=== PATIENT | female | born 2005 | race Caucasian/White ===

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

== ENCOUNTER 2024-02-22 09:04 | Outpatient (AMB) | payer BC, SELFPAY ==
--- NOTE | 2024-02-22 09:11 | MHC.PC.OV ---
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 Intake Note: New patient visit. Frequent UTI. Clinical Trainer Required: No Is last menstrual period known: No (Takes control that doesn't allow her to get her menstrual cycle.) Patient : No Allergies No Known Allergies Allergy (Verified 02/22/24 09:14) Medication List - Last Reconciled 02/22/24 by Shabana Piper PA-C hydroxyzine HCl 50 mg PO BEDTIME lamotrigine 100 mg PO DAILY norethindrone ac-eth estradiol 1-20 mg-mcg () 1 tab PO DAILY Tobacco use date assessed: 02/22/24 Dental Screening Dental Screen Date: 02/22/24 Did you have a dental visit in the last 12 months?: Yes Did you have a dental problem in the last 6 months where you did not have access to dental care?: No Was dental information given to patient?: Patient has dentist HPI 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 HPI Details Pt is a 19 y/o female who presents today for a cpe. she is transferring from [facility]. She has a significant past medical history of generalized anxiety disorder, panic disorder and new diagnosis of OCD. She does not have any acute concerns today. Uro: She is having frequent utis and wants to see urology. She is gone to the hospital 4 times this year for UTIs. States that she usually urinates after intercourse. She has already taking cranberry pills. She states 1 time this year her UTI got so severe she ended up with pyelonephritis. She is currently asymptomatic but often has dysuria and does not always get seen for this. She tries to sometimes treat it at home. Psych: Currently doing a lot better with Psychiatry. She started lamotrigine 100 mg twice a day and hydroxyzine at night. Last semester her anxiety got so severe that she was unable to drive herself anywhere. She still struggles with driving but it is getting a little better as she has a plan with her psychiatrist and therapist. She feels a bit more in control of her anxiety and emotions. No SI/HI. She has been hospitalized before for mental health related issues. GI: Her brother has a history of Crohn's disease and she denies any change in stool, diarrhea, mucus in the stool or blood. She does have chronic ongoing nausea and was following with GI but would like a 2nd opinion. Denies using any marijuana. States that she does sometimes get heartburn but does not feel like this is related. She states that sometimes when she vomits it is actually only partially digested food and she wonders if she has some slow digestive tract. She denies any weight loss related to this. 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 Medical History (Updated 02/22/24 @ 09:43 by Shabana Piper PA-C) GERD (gastroesophageal reflux disease) Chronic nausea Frequent UTI Asthma, mild intermittent, well-controlled Generalized anxiety disorder ADHD OCD (obsessive compulsive disorder) Family History (Updated 02/22/24 @ 09:24 by Samira Quintero CMA) Father Alcoholism Mother Asthma Social History Housing: House Patient Tobacco Use Status: Never used Tobacco e-Cigarette/Vaping Use: Former Use Second Hand Smoke Exposure: No service: No Current occupational status: student Cognitive needs: No Hearing needs: No Vision needs: No Questionnaire PHQ-9 Over the last 2 weeks, how often have you been bothered by any of the following problems? 1. Little interest or pleasure in doing things: several days 2. Feeling down, depressed, or hopeless: several days 3. Trouble falling or staying asleep, or sleeping too much: more than half the days 4. Feeling tired or having little energy: more than half the days 5. Poor appetite or overeating: more than half the days 6. Feeling bad about yourself - or that you are a failure or have let yourself or your family down: several days 7. Trouble concentrating on things, such as reading the newspaper or watching television: more than half the days 8. Moving or speaking so slowly that other people could have noticed. Or the opposite - being so fidgety or restless that you have been moving around a lot more than usual: several days 9. Thoughts that you would be better off or of hurting yourself in some way: not at all Total score: 12 Depression Screening Interpretation: Positive Depression Screening Follow-up: Existing condition and In treatment Depression Screening Done: Yes 02442 - PHQ-9 Billing: Yes Source: Developed by Drs. Nico Chinchilla, Rose Garcia, Ollie Ramon and colleagues, with an educational giovanni from [employer]. Thrive Questionnaire Date Thrive assessed: 02/22/24 I am a: Patient What is your living situation today?: I have a steady place to live Within the past 12 months, did the food you bought not last and you didn't have the money to get more?: Never true Within the past 12 months, did you worry whether your food would run out before you got money to buy more?: Never true Do you have trouble paying for medicines?: No Do you have trouble getting transportation to medical appointments?: No Do you have trouble paying your heating and electricity bill?: No Do you have trouble taking care of your child, family member or friend?: No Do you have trouble with day-to-day activities such as bathing, preparing meals, shopping, managing finances, etc.?: No Are you currently unemployed and looking for a job?: No Are you interested in more education?: No Please select the resources that you would like help with: None Currently or been in a relationship where the following occur: no concerns reported THRIVE Score: 0 AUDIT C Alcohol Use Questionnaire (AUDIT-C) 1. How often do you have a drink containing alcohol?: 2-4 times a month (weekends) 2. How many drinks containing alcohol do you have on a typical day when you are drinking?: 5 or 6 3. How often do you have six or more drinks on one occasion?: Weekly Total Score: 7 CHERYL-7 AMB Questionnaire CHERYL-7 Date CHERYL - 7 assessed: 02/22/24 Feeling nervous, anxious, or on edge: 2 = More than half the days Not being able to stop or control worryin = More than half the days Worrying too much about different things: 2 = More than half the days Trouble relaxin = More than half the days Being so restless that it is hard to sit still: 2 = More than half the days Becoming easily annoyed or irritable: 2 = More than half the days Feeling afraid as if something awful might happen: 1 = Several days Total CHERYL-7 score (0-4 normal; 5-9 mild; 10-14 moderate; 15-21 severe): 13 Source: Developed by Drs. Nico Chinchilla, Rose Garcia, Ollie Ramon and colleagues, with an educational giovanni from [employer]. CHERYL-7 Assessment Billing CHERYL-7 Assessment Tool: CHERYL-7 Assessment 44241 ACT Questionnaire In the past 4 weeks, how much of the time did your asthma keep you from getting as much done at work, school or at home?: A little of the time During the past 4 weeks, how often have you had shortness of breath?: 3-6 times a week During the past 4 weeks, how often did your asthma symptoms wake you up at night or earlier than usual in the morning?: Once or twice per week During the past 4 weeks, how often have you had to use your rescue inhaler or nebulizer medication?: 1-2 times a week How would you rate your asthma control during the past 4 weeks?: Somewhat controlled ACT Interpretation: Positive Score: 16 Physical exam (Primary Care) Vital Signs: Last Vital Signs Temp 98 F 02/22/24 09:19 Pulse 68 02/22/24 09:19 BP 88/50 L 02/22/24 09:19 Pulse Ox 99 02/22/24 09:19 Oxygen Delivery Method Room Air 02/22/24 09:19 BMI result Body Mass Index 20.0 Tobacco/Smoking Status: Tobacco use Status Tobacco use date assessed 02/22/24 02/22/24 09:26 Patient Tobacco Use Status Never used Tobacco 02/22/24 09:26 e-Cigarette/Vaping Use Former Use 02/22/24 09:26 Depression Screening Interpretation: Positive Depression Screening Follow-up: Existing condition and In treatment Currently or been in a relationship where the following occur: no concerns reported Const Orientation/consciousness: patient oriented x3 HENMT Ears: hearing grossly normal bilaterally and TM's normal bilaterally General nose exam: No nasal polyps present Face and sinus: Yes sinuses nontender Mouth: Normal oral and palatal mucosa present Eyes Pupils: Equal, round and reactive pupils present EOM: EOMs intact bilaterally Neck Neck: Yes full ROM and Yes no lymphadenopathy Thyroid: Thyroid normal Chest Chest palpation & inspection: normal inspection of the chest Resp Auscultation: clear to auscultation bilaterally Cardio Rate: regular rate Rhythm: regular rhythm Heart sounds: S1 normal heart sound present and S2 normal heart sound present Peripheral pulses: Peripheral pulses 2+ throughout GI Other: Soft, nontender Auscultation: normal bowel sounds Rectal Exam - Female: deferred General: Yes no CVA tenderness Back/Spine/Pelvis Other: Nontender Back: no CVA tenderness Skin General skin exam: no rashes or lesions noted Neuro General: patient oriented x3, gait normal, CN's II-XI intact bilaterally and deep tendon reflexes 2+ bilaterally Cranial nerves: Yes Equal, round and reactive pupils present Motor exam (neuro): 5/5 motor strength present throughout Sensory Exam: double simultaneous stimulation for sensation normal Coordination: [id number] test normal and Romberg test negative Extrem General: Yes normal to inspection and Yes full ROM Psych Affect: normal affect Attitude: cooperative Thought process: Normal thought process present Thought content: Normal thought content present Insight: Good insight present (Psych) Judgement: Good judgement present (Psych) Assessment and Plan Assessment & Plan (1) Routine general medical examination at a health care facility: Code(s): Z00.00 - Encounter for general adult medical examination without abnormal findings Plan: reviewed labs ordered (2) Generalized anxiety disorder: Code(s): F41.1 - Generalized anxiety disorder Plan: continue with psychiatry. stable/improved (3) OCD (obsessive compulsive disorder): Code(s): F42.9 - Obsessive-compulsive disorder, unspecified Qualifiers: Obsessive-compulsive disorder type: mixed obsessional thoughts and acts Qualified Code(s): F42.2 - Mixed obsessional thoughts and acts Plan: as above (4) Asthma, mild intermittent, well-controlled: Code(s): J45.20 - Mild intermittent asthma, uncomplicated Plan: following with allergy and immunology (5) Frequent UTI: Code(s): N39.0 - Urinary tract infection, site not specified Plan: labs and ua/culture ordered. referral to urology (6) Chronic nausea: Code(s): R11.0 - Nausea Plan: referral to gi. discussed diet changes Plan f/u 6 months or sooner prn. pt understands and agrees with the plan. Orders: Orders Comprehensive [place]. Panel Fast Today F41.1 - Generalized anxiety disorder, F42.9 - Obsessive-compulsive disorder, unspecified, J45.20 - Mild intermittent asthma, uncomplicated, N39.0 - Urinary tract infection, site not specified, Z00.00 - Encounter for general adult medical examination without abnormal findings Lipid Panel Today F41.1 - Generalized anxiety disorder, F42.9 - Obsessive-compulsive disorder, unspecified, J45.20 - Mild intermittent asthma, uncomplicated, N39.0 - Urinary tract infection, site not specified, Z00.00 - Encounter for general adult medical examination without abnormal findings TSH reflex Free T4 Today F41.1 - Generalized anxiety disorder, F42.9 - Obsessive-compulsive disorder, unspecified, J45.20 - Mild intermittent asthma, uncomplicated, N39.0 - Urinary tract infection, site not specified, Z00.00 - Encounter for general adult medical examination without abnormal findings UA CC w/rflx Micro + Cult Today F41.1 - Generalized anxiety disorder, F42.9 - Obsessive-compulsive disorder, unspecified, J45.20 - Mild intermittent asthma, uncomplicated, N39.0 - Urinary tract infection, site not specified, Z00.00 - Encounter for general adult medical examination without abnormal findings Vitamin B12 and Folate Today F41.1 - Generalized anxiety disorder, F42.9 - Obsessive-compulsive disorder, unspecified, J45.20 - Mild intermittent asthma, uncomplicated, N39.0 - Urinary tract infection, site not specified, Z00.00 - Encounter for general adult medical examination without abnormal findings Complete Blood Count Auto Diff Today F41.1 - Generalized anxiety disorder, F42.9 - Obsessive-compulsive disorder, unspecified, J45.20 - Mild intermittent asthma, uncomplicated, N39.0 - Urinary tract infection, site not specified, Z00.00 - Encounter for general adult medical examination without abnormal findings Referrals Urology Referral N39.0 - Urinary tract infection, site not specified Gastroenterology Referral K21.9 - Gastro-esophageal reflux disease without esophagitis, R11.0 - Nausea Coding Level of Care Code Est Pt Prev Care 18-39y(94442) Diagnoses Routine general medical examination at a health care facility Z00.00 Generalized anxiety disorder F41.1 Mixed obsessional thoughts and acts F42.2 Obsessive-compulsive disorder type: mixed obsessional thoughts and acts Asthma, mild intermittent, well-controlled J45.20 Frequent UTI N39.0 Chronic nausea R11.0 Additional Codes CHERYL-7 Assessment Billing - CHERYL-7 Assessment Tool: CHERYL-7 Assessment 43143 ([id number])
[2024-02-22 09:19] VITALS: BP 88/50; PULSE 68; TEMP 36.6; O2SAT 99
== END 2024-02-22 09:47 | disposition home or self-care (01) ==
PROVIDERS: PCP Physician Assistant; Visit Provider Physician Assistant
DX: Z00.00 Encounter for general adult medical examination without abnormal findings (principal); F41.1 Generalized anxiety disorder; F42.2 Mixed obsessional thoughts and acts; J45.20 Mild intermittent asthma, uncomplicated; N39.0 Urinary tract infection, site not specified; R11.0 Nausea
CPT/HCPCS: 99395

== ENCOUNTER 2024-03-20 10:21 | Outpatient (AMB) | payer BC, SELFPAY ==
--- NOTE | 2024-03-20 10:25 | A.OFFPC_ITS ---
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 PULM: Recently has felt that her asthma significantly better controlled with the QVAR. Increase dose to 80 mcg and doing well. Not needing to use albuterol. She is still following with Allergy and immunology. Psych: Well-controlled but did recently increase her Lamictal to 200 mg. Rarely using hydroxyzine. She wonders if the Lamictal is causing some constipation. GI: States that she has been experiencing constipation since the increased dosage of the limb of the finds that it is hard to have a full bowel movement. She says when she goes it is hard, small, hard stools. She does have an upcoming appointment with GI 05/21. She is wondering if she can try something for the constipation as she has not tried anything yet. She is eating fruits and vegetables, drinking plenty of water and exercising. Derm: She states that on her arms the skin is rough, flesh-colored him raised. It has not itchy or tender. She would like to see gray Dermatology. [facility] Medical History (Updated 03/20/24 @ 10:59 by Shabana Piper PA-C) GERD (gastroesophageal reflux disease) Chronic nausea Frequent UTI Asthma, mild intermittent, well-controlled Generalized anxiety disorder ADHD OCD (obsessive compulsive disorder) Family History (Updated 02/22/24 @ 09:24 by Samira Quintero CMA) Father Alcoholism Mother Asthma Social History Housing: House Patient Tobacco Use Status: Never used Tobacco e-Cigarette/Vaping Use: Former Use Second Hand Smoke Exposure: No service: No Current occupational status: student Cognitive needs: No Hearing needs: No Vision needs: No Questionnaire Thrive Questionnaire Date Thrive assessed: 02/22/24 CHERYL-7 AMB Questionnaire CHERYL-7 Date CHERYL - 7 assessed: 02/22/24 Source: Developed by Drs. Nico Chinchilla, Rose Garcia, Ollie Ramon and colleagues, with an educational giovnani from [employer]. Physical exam (Primary Care) Vital Signs: Last Vital Signs Pulse 78 03/20/24 10:26 Resp 16 03/20/24 10:26 BP 100/64 03/20/24 10:26 Pulse Ox 95 03/20/24 10:26 Oxygen Delivery Method Room Air 03/20/24 10:26 Tobacco/Smoking Status: Tobacco use Status Tobacco use date assessed 02/22/24 02/22/24 09:26 Patient Tobacco Use Status Never used Tobacco 02/22/24 09:26 e-Cigarette/Vaping Use Former Use 02/22/24 09:26 Thrive Assessment: Date of Thrive Assessment Date Thrive assessed 02/22/24 02/22/24 09:36 Const Orientation/consciousness: patient oriented x3 HENMT Ears: hearing grossly normal bilaterally Neck Thyroid: Thyroid normal Lymphatic: no lymphadenopathy noted Resp Auscultation: clear to auscultation bilaterally Cardio Rate: regular rate Rhythm: regular rhythm Heart sounds: S1 normal heart sound present and S2 normal heart sound present GI Inspection: Yes normal to inspection Palpation (GI): Soft to palpation and Other GI palpation findings present (nontender, no cva tenderness) Auscultation: normoactive bowel sounds Skin Other: The skin on the posterior upper arms is noted to have a flesh colored, papular rash Neuro General: patient oriented x3, gait normal and no focal motor deficits Assessment and Plan Assessment & Plan (1) Rash and nonspecific skin eruption: Code(s): R21 - Rash and other nonspecific skin eruption Plan: Referral to gray Dermatology. (2) Asthma, mild intermittent, well-controlled: Code(s): J45.20 - Mild intermittent asthma, uncomplicated Plan: Continue current regimen (3) Constipation: Code(s): K59.00 - Constipation, unspecified Plan: ? Medication induced. Advised patient to get labs checked that I have previously ordered including TSH. We will try a stool softener and she will try a laxative for today. Last bowel movement was yesterday. She will follow up if no improvement or if anything worsens or changes. She does have an appointment with GI in a couple of months. Patient understands and agrees with the plan. Orders: Referrals Dermatology Referral R21 - Rash and other nonspecific skin eruption Medications: New docusate sodium (Colace) 100 mg PO BID 60 caps 2RF Coding Level of Care Code Est Pt Level 4 (84578) Diagnoses Rash and nonspecific skin eruption R21 Asthma, mild intermittent, well-controlled J45.20 Constipation K59.00
[2024-03-20 10:26] VITALS: BP 100/64; PULSE 78; RESP 16; O2SAT 95
== END 2024-03-20 11:00 | disposition home or self-care (01) ==
PROVIDERS: PCP Physician Assistant; Visit Provider Physician Assistant
DX: R21 Rash and other nonspecific skin eruption (principal); J45.20 Mild intermittent asthma, uncomplicated; K59.00 Constipation, unspecified
CPT/HCPCS: 99214

== ENCOUNTER 2024-05-07 11:01 | Outpatient (AMB) | payer BC, SELFPAY ==
--- NOTE | 2024-05-07 11:07 | MHC.OFFVIS ---
Intake Visit Reasons: history of UTI Intake Note: Patient is present for history of UTI Urology Medication:NONE Antibiotic Allergy:NONE Blood Thinner:NONE TODAY'S PVR: 0ML'S Stone Fabricator Required: No Allergies No Known Allergies Allergy (Verified 05/07/24 14:34) Medication List - Last Reconciled 05/07/24 by OCTAVIO Joyce albuterol sulfate 90 mcg/actuation 2 puffs inhalation Q4-6H PRN beclomethasone dipropionate 80 mcg/actuation (Qvar RediHaler) 1 inh inhalation Q12H hydroxyzine HCl 50 mg PO BEDTIME lamotrigine 100 mg PO DAILY norethindrone ac-eth estradiol 1-20 mg-mcg (Junel) 1 tab PO DAILY HPI Comments Details: Dimas is a very pleasant 19-year-old female patient of Dr. Piper. She has a past medical history of constipation, GERD, asthma, anxiety, ADHD, and OCD. She presents to the office today as a new patient for recurrent urinary tract infections. In discussion with the patient today she reports noting over the last year and a half she has had approximately 5 urinary tract infections. She discusses having seeked emergency room care for her last urinary tract infection at which time recommendations were made for urology referral for further assessment evaluation. When asked she does report a history of constipation. Discussed at length correlation of constipation and recurrent urinary tract infections. She does report to be sexually active with 1 partner and utilizes condoms. She currently denies any bothersome urinary issues or concerns. She does report baseline urinary frequency however relates this to her increase consumption of water daily. She otherwise denies urinary urgency, incontinence, nocturia, hematuria, dysuria, foul smelling urine, changes to urinary stream, flank pain, fever, and or chills. She is happy with her current voiding parameters. In office urinalysis results reviewed with the patient today. PVR 0 mL. Discussed at length potential causes of recurrent urinary tract infections as well as further treatment options. She otherwise offers no other issues or concerns at this time. [facility] Medical History GERD (gastroesophageal reflux disease) Chronic nausea Frequent UTI Asthma, mild intermittent, well-controlled Generalized anxiety disorder ADHD OCD (obsessive compulsive disorder) Family History (Updated 05/23/24 @ 09:24 by Samira Quintero CMA) Father Alcoholism Mother Asthma Social History Housing: House Patient Tobacco Use Status: Never used Tobacco e-Cigarette/Vaping Use: Former Use Second Hand Smoke Exposure: No service: No Current occupational status: student Cognitive needs: No Hearing needs: No Vision needs: No Review of Systems Const All systems reviewed & are unremarkable except as noted in HPI and below Physical Exam Const General: cooperative, healthy appearing, comfortable, no acute distress, well developed, alert and awake Orientation/consciousness: patient oriented x3 Limitations: no limitations HEENT Head: Yes normal to inspection, Yes normocephalic and Yes atraumatic Ears: hearing grossly normal bilaterally Eyes General: appearance normal, both eyes and all related structures Neck Neck: Yes normal visual inspection and Yes trachea midline Chest Chest palpation & inspection: normal inspection of the chest Resp Effort & Inspection: normal respiratory effort and able to speak in complete sentences Cardio Rate: regular rate GI Inspection: Yes normal to inspection General: Yes no CVA tenderness Back/Spine/Pelvis Back: no CVA tenderness Skin General skin exam: no rashes or lesions noted Neuro General: patient oriented x3 Extrem General: Yes normal to inspection Psych Appearance: grossly normal and well kempt Mental Status: mental status grossly normal Speech and movement: Normal speech and movement present and Clear speech present Affect: normal affect Attitude: cooperative Thought process: Normal thought process present Thought content: Normal thought content present Insight: Fair insight present (Psych) Judgement: Fair judgement present (Psych) Office Procedures Post Void Residual Post Residual Void Post Void Residual (PVR): 0 63015-Cpsg Void Residual by ultrasound Results AMB Urinalysis, Automated UA Leukoctes 0 Ira/uL Last Edit by JACK Anthony on 05/07/24 11:18 UA Nitrite Negative Last Edit by JACK Anthony on 05/07/24 11:18 UA Urobilinogen 0.2 mg/dL Last Edit by JACK Anthony on 05/07/24 11:18 UA Protein 15 mg/dL Last Edit by JACK Anthony on 05/07/24 11:18 UA pH 6.0 Last Edit by JACK Anthony on 05/07/24 11:18 UA Blood 0 Bull/uL Last Edit by JACK Anthony on 05/07/24 11:18 UA Specific [place] 1.010 Last Edit by JACK Anthony on 05/07/24 11:18 UA Ketone Negative Last Edit by JACK Anthony on 05/07/24 11:18 UA Bilirubin 0 mg/dL Last Edit by JACK Anthony on 05/07/24 11:18 UA Glucose 0 mg/dL Last Edit by JACK Anthony on 05/07/24 11:18 Results Reviewed Results Reviewed: Laboratory Last Values Urine pH (Auto) 6.0 05/07/24 11:18 Specific [place] (Auto) 1.010 05/07/24 11:18 Urine Protein (Auto) 15 mg/dL 05/07/24 11:18 Glucose (UA)(Auto) 0 mg/dL 05/07/24 11:18 Urine Ketones (Auto) Negative 05/07/24 11:18 Urine Blood (Auto) 0 Bull/uL 05/07/24 11:18 Urine Nitrite (Auto) Negative 05/07/24 11:18 Urine Bilirubin (Auto) 0 mg/dL 05/07/24 11:18 Urine Urobilinogen (Auto) 0.2 mg/dL 05/07/24 11:18 Leukocyte Esterase (Auto) 0 Ira/uL 05/07/24 11:18 Assessment & Plan Assessment & Plan (1) Frequent UTI: Code(s): N39.0 - Urinary tract infection, site not specified Category: Medical Plan In office urinalysis results reviewed with the patient today; as noted above. Discussed at length potential causes of recurrent urinary tract infections. Will obtain retroperitoneal ultrasound for further assessment evaluation. Patient currently denies any bothersome urinary issues or concerns. Patient reports be happy with current voiding parameters. Discussed correlation of constipation with recurrent urinary tract infections. Discussed UTI prevention with D mannose supplement, vitamin-C, increasing fluid intake, behavioral therapy with timed voiding, perineal hygiene and postcoital voiding, and management of constipation with stool softeners and increased fiber intake. Follow-up in 1-3 months with imaging to be completed prior; or sooner with any issues, concerns, and or questions. Orders: Orders AMB Urinalysis Automated Today Z13.9 - Encounter for screening, unspecified US retroperitoneal comp Today N39.0 - Urinary tract infection, site not specified Patient Instructions: The patient had an opportunity to ask questions regarding the treatment plan. All questions were answered. Physical exam, labs, and imaging were discussed and reviewed in detail. As well as risks, benefits, and discussion of treatment choices. No major barriers to understanding were identified. The patient expressed understanding and agreement with the above treatment plan. The patient was made aware they should contact our office by phone for worsening of their current condition, the appearance of new symptoms, or with any questions or concerns. Compliance is encouraged with any medications and follow up testing that is ordered. It is a privilege to be allowed the opportunity to participate in? your urological care.? Again, if you have any questions or concerns If you have any questions or concerns please do not hesitate to contact me. The office is [phone]. This note is constructed using voice recognition software. While every effort has been made to ensure accuracy special events assistant errors may have been included. Yours sincerely, OCTAVIO Joyce Coding Level of Care Code New Pt Level 4 (53457) Diagnoses Frequent UTI N39.0 CPT Codes Post Residual Void - PVR CPT Code: 77864-Opww Void Residual by ultrasound ([id number])
== END 2024-05-07 11:33 | disposition home or self-care (01) ==
PROVIDERS: PCP Physician Assistant; Visit Provider Nurse Practitioner Family
DX: Z13.9 Encounter for screening, unspecified (principal); N39.0 Urinary tract infection, site not specified
CPT/HCPCS: 99204

== ENCOUNTER → 2024-05-07 11:01 | Outpatient (BNVA) | payer BC, SELFPAY | PROVIDERS: PCP Physician Assistant; Visit Provider Nurse Practitioner Family | DX: N39.0 Urinary tract infection, site not specified (principal) | CPT/HCPCS: 51798; 81003 ==

== ENCOUNTER 2024-05-22 12:24 | Outpatient (REF) | payer BC, SELFPAY ==
--- NOTE | ~2024-05-22 | US_ITS ---
EXAMINATION: US RETROPERITONEAL COMPLETE (RENAL) CLINICAL INFORMATION: Urinary tract infection, site not specified. COMPARISON: None available. TECHNIQUE: Real-time imaging of the kidneys and bladder. FINDINGS: RIGHT KIDNEY: 10.4 x 3.7 x 5.7 cm (SAG x AP x TRV). The kidney is normal in size, contour, and echogenicity. Renal cortical thickness is normal. No calculi or focal parenchymal lesions. No hydronephrosis. LEFT KIDNEY: 9.9 x 5.4 x 5.4 cm (SAG x AP x TRV). The kidney is normal in size, contour, and echogenicity. Renal cortical thickness is normal. No calculi or focal parenchymal lesions. No hydronephrosis. BLADDER: Well distended and normal. Bilateral ureteral jets are demonstrated. Prevoid bladder volume is 234 mL. There is no postvoid residual. US/US retroperitoneal comp IMPRESSION: Unremarkable examination. Electronically signed by: Jin Avalos MD 06/20/2024 04:27 PM EDT
== END 2024-05-22 12:25 | disposition home or self-care (01) ==
LOC: HO.US 12:24
PROVIDERS: PCP Physician Assistant; Visit Provider Nurse Practitioner Family
DX: N39.0 Urinary tract infection, site not specified (principal)
CPT/HCPCS: 76770

== ENCOUNTER 2024-06-27 15:03 | Outpatient (AMB) | payer BC, SELFPAY ==
--- NOTE | 2024-06-27 15:03 | A.OFFVIS_ITS ---
Intake Visit Reasons: 2m/US(set) Intake Note: Patient presents today for televisit follow up on: frequent uti and ultrasound results Imaging Completed: 05/22/24 Urology Medication: prev treated with macrobid Antibiotic Allergy:NONE Blood Thinner:NONE Background Check Coordinator Required: No Allergies No Known Allergies Allergy (Verified 05/07/24 14:34) Medication List - Last Reconciled 06/27/24 by OCTAVIO Joyce albuterol sulfate 90 mcg/actuation 2 puffs inhalation Q4-6H PRN beclomethasone dipropionate 80 mcg/actuation (Qvar RediHaler) 1 inh inhalation Q12H hydroxyzine HCl 50 mg PO BEDTIME lamotrigine 100 mg PO DAILY norethindrone ac-eth estradiol 1-20 mg-mcg (Junel) 1 tab PO DAILY sertraline 100 mg PO DAILY HPI Comments Details: Dimas is a very pleasant 19-year-old female patient of Dr. Piper. She has a past medical history of constipation, GERD, asthma, anxiety, ADHD, and OCD. She is being followed up via video telehealth. Of note, patient was seen approximately 6 weeks ago as a new patient for recurrent urinary tract infections at which time a retroperitoneal ultrasound was ordered for further assessment evaluation. These results were reviewed with the patient today. Bilateral kidneys with no calculi, lesions, and or hydronephrosis. The bladder is well distended and normal. Bilateral jets are demonstrated. Pre void bladder volume is proximally 235 mL. There was no postvoid residual. She currently denies any bothersome urinary issues or concerns. She reports feeling UTI like symptoms present with in when experiencing issues with constipation. We discussed at length correlation of constipation and recurrent urinary tract infections. She does report to be sexually active with 1 partner and utilizes condoms. She endorses to be drinking plenty of water daily. She otherwise denies urinary urgency, incontinence, nocturia, hematuria, dysuria, foul smelling urine, changes to urinary stream, flank pain, fever, and or chills. She is happy with her current voiding parameters. Discussed calling office with any UTI like symptom and or seeking medical treatment. She otherwise offers no other issues or concerns at this time. [facility] Medical History GERD (gastroesophageal reflux disease) Chronic nausea Frequent UTI Asthma, mild intermittent, well-controlled Generalized anxiety disorder ADHD OCD (obsessive compulsive disorder) Family History Father Alcoholism Mother Asthma Social History Housing: House Patient Tobacco Use Status: Never used Tobacco e-Cigarette/Vaping Use: Former Use Second Hand Smoke Exposure: No service: No Current occupational status: student Cognitive needs: No Hearing needs: No Vision needs: No Review of Systems Const All systems reviewed & are unremarkable except as noted in HPI and below Physical Exam Const General: cooperative, healthy appearing, comfortable, no acute distress, well developed, alert and awake Orientation/consciousness: patient oriented x3 Resp Effort & Inspection: normal respiratory effort and able to speak in complete sentences Neuro General: patient oriented x3 Psych Appearance: grossly normal and well kempt Mental Status: mental status grossly normal Speech and movement: Normal speech and movement present and Clear speech present Affect: normal affect Attitude: cooperative Thought process: Normal thought process present Thought content: Normal thought content present Insight: Fair insight present (Psych) Judgement: Fair judgement present (Psych) Telehealth Telehealth Telehealth Platform: [facility] Location of provider rendering services: practice address Location of patient: address on file Patient Identification confirmed using: Name, : Yes Telehealth method: video Patient verbally consented to treatment: Yes Patient verbally consented to billing insurance company: Yes Patient informed of any privacy concerns related to visit: Yes Minutes spent on Phone/Video with Pt.: 15 Results Reviewed Results Reviewed: Date of Service: 05/22/24 EXAMINATION: US RETROPERITONEAL COMPLETE (RENAL) FINDINGS: RIGHT KIDNEY: 10.4 x 3.7 x 5.7 cm (SAG x AP x TRV). The kidney is normal in size, contour, and echogenicity. Renal cortical thickness is normal. No calculi or focal parenchymal lesions. No hydronephrosis. LEFT KIDNEY: 9.9 x 5.4 x 5.4 cm (SAG x AP x TRV). The kidney is normal in size, contour, and echogenicity. Renal cortical thickness is normal. No calculi or focal parenchymal lesions. No hydronephrosis. BLADDER: Well distended and normal. Bilateral ureteral jets are demonstrated. Prevoid bladder volume is 234 mL. There is no postvoid residual. IMPRESSION: Unremarkable examination. Assessment & Plan Assessment & Plan (1) Constipation: Code(s): K59.00 - Constipation, unspecified Category: Medical (2) Frequent UTI: Code(s): N39.0 - Urinary tract infection, site not specified Category: Medical Plan Recent retroperitoneal ultrasound results reviewed with the patient today; as noted above. She currently denies any bothersome urinary issues or concerns. She reports be happy with current voiding parameters. We discussed at length potential causes of recurrent urinary tract infections as well as correlation of constipation and UTIs. Discussed UTI prevention with D mannose supplement, vitamin-C, increasing fluid intake, behavioral therapy with timed voiding, perineal hygiene and postcoital voiding, and management of constipation with stool softeners and increased fiber intake. Follow-up in 3 months with PVR; or sooner with any issues, concerns, and or questions. Patient Instructions: The patient had an opportunity to ask questions regarding the treatment plan. All questions were answered. Physical exam, labs, and imaging were discussed and reviewed in detail. As well as risks, benefits, and discussion of treatment choices. No major barriers to understanding were identified. The patient expressed understanding and agreement with the above treatment plan. The patient was made aware they should contact our office by phone for worsening of their current condition, the appearance of new symptoms, or with any questions or concerns. Compliance is encouraged with any medications and follow up testing that is ordered. It is a privilege to be allowed the opportunity to participate in? your urological care.? Again, if you have any questions or concerns If you have any questions or concerns please do not hesitate to contact me. The office is [phone]. This note is constructed using voice recognition software. While every effort has been made to ensure accuracy hand surgeon errors may have been included. Yours sincerely, OCTAVIO Joyce Coding Level of Care Code Tele Est Pt Level 3 (19316) Diagnoses Constipation K59.00 Frequent UTI N39.0 Time Spent (min) 15
== END 2024-06-27 15:43 | disposition home or self-care (01) ==
LOC: HO.HUSH 15:03
PROVIDERS: PCP Physician Assistant; Visit Provider Nurse Practitioner Family
DX: K59.00 Constipation, unspecified (principal); N39.0 Urinary tract infection, site not specified
CPT/HCPCS: 99213

== ENCOUNTER → 2024-06-27 15:03 | Outpatient (BNVA) | payer BC, SELFPAY | PROVIDERS: PCP Physician Assistant; Visit Provider Nurse Practitioner Family ==

== ENCOUNTER 2024-09-23 16:00 | Outpatient (AMB) | payer BC, SELFPAY ==
--- NOTE | 2024-09-23 16:01 | A.OFFVIS_ITS ---
Intake Visit Reasons: 3M PVR Intake Note: Patient is present for 3M/PVR Urology Medication:NONE Antibiotic Allergy:NONE Blood Thinner:NONE Last PVR: Todays PVR:0ML'S Warehouse Unloader Required: No Allergies No Known Allergies Allergy (Verified 09/23/24 16:11) Medication List - Last Reconciled 09/23/24 by OCTAVIO Joyce albuterol sulfate 90 mcg/actuation 2 puffs inhalation Q4-6H PRN beclomethasone dipropionate 80 mcg/actuation (Qvar RediHaler) 1 inh inhalation Q12H hydroxyzine HCl 50 mg PO BEDTIME lamotrigine 100 mg PO DAILY norethindrone ac-eth estradiol 1-20 mg-mcg (Junel) 1 tab PO DAILY sertraline 100 mg PO DAILY HPI Comments Details: Dimas is a very pleasant 19-year-old female patient of Dr. Piper. She has a past medical history of constipation, GERD, asthma, anxiety, ADHD, and OCD. She presents to the office today for follow-up of her recurrent urinary tract infections. In discussion with the patient today she reports having had no UTI like symptoms and or urinary tract infections since her last office visit approximately 3 months ago. She currently denies any bothersome urinary issues or concerns. She reports feeling since she has better managed her constipation she has had no bothersome urinary symptoms. Previous workup has included a retroperitoneal ultrasound 05/25 noting bilateral kidneys with no calculi, lesions, and or hydronephrosis. The bladder is well distended and normal. Bilateral jets are demonstrated. Pre void bladder volume is proximally 235 mL. There was no postvoid residual. We discussed at length correlation of constipation and recurrent urinary tract infections. She does report to be sexually active with 1 partner and utilizes condoms. She endorses to be drinking plenty of water daily. She otherwise denies urinary urgency, incontinence, nocturia, hematuria, dysuria, foul smelling urine, changes to urinary stream, flank pain, fever, and or chills. She is happy with her current voiding parameters. Discussed calling office with any UTI like symptom and or seeking medical treatment. In office urinalysis results reviewed with the patient today. PVR 0 mL. She discusses recently fracturing a toe on the left foot. She otherwise offers no other issues or concerns at this time. [facility] Medical History GERD (gastroesophageal reflux disease) Chronic nausea Frequent UTI Asthma, mild intermittent, well-controlled Generalized anxiety disorder ADHD OCD (obsessive compulsive disorder) Family History Father Alcoholism Mother Asthma Social History Housing: House Patient Tobacco Use Status: Never used Tobacco e-Cigarette/Vaping Use: Former Use Second Hand Smoke Exposure: No service: No Current occupational status: student Cognitive needs: No Hearing needs: No Vision needs: No Review of Systems Const All systems reviewed & are unremarkable except as noted in HPI and below Physical Exam Const General: cooperative, healthy appearing, comfortable, no acute distress, well developed, alert and awake Nutritional Appearance: thin Orientation/consciousness: patient oriented x3 Limitations: crutches HEENT Head: Yes normal to inspection, Yes normocephalic and Yes atraumatic Ears: hearing grossly normal bilaterally Eyes General: appearance normal, both eyes and all related structures Neck Neck: Yes normal visual inspection and Yes trachea midline Chest Chest palpation & inspection: normal inspection of the chest Resp Effort & Inspection: normal respiratory effort and able to speak in complete sentences Cardio Rate: regular rate GI Inspection: Yes normal to inspection General: Yes no CVA tenderness Back/Spine/Pelvis Back: no CVA tenderness Skin General skin exam: no rashes or lesions noted Neuro General: patient oriented x3 Extrem General: Yes normal to inspection Psych Appearance: grossly normal and well kempt Mental Status: mental status grossly normal Speech and movement: Normal speech and movement present and Clear speech present Affect: normal affect Attitude: cooperative Thought process: Normal thought process present Thought content: Normal thought content present Insight: Fair insight present (Psych) Judgement: Fair judgement present (Psych) Office Procedures Post Void Residual Post Residual Void Post Void Residual (PVR): 0 56116-Bavu Void Residual by ultrasound Results AMB Urinalysis, Automated UA Leukoctes 0 Ira/uL Last Edit by JACK Anthony on 09/23/24 16:12 UA Nitrite Negative Last Edit by JACK Anthony on 09/23/24 16:12 UA Urobilinogen 0.2 mg/dL Last Edit by JACK Anthony on 09/23/24 16:1 2 UA Protein 30 mg/dL Last Edit by JACK Anthony on 09/23/24 16:12 UA pH 6.0 Last Edit by Fabio Nash CCM on 09/23/24 16:12 UA Blood 0 Bull/uL Last Edit by Fabio Nash CCM on 09/23/24 16:12 UA Specific [place] 1.025 Last Edit by Fabio Nash [facility] on 09/23/24 16: 12 UA Ketone Negative Last Edit by Fabio Nash CCM on 09/23/24 16:12 UA Bilirubin 0 mg/dL Last Edit by Fabio Nash [facility] on 09/23/24 16:12 UA Glucose 0 mg/dL Last Edit by Fabio Nash [facility] on 09/23/24 16:12 Results Reviewed Results Reviewed: Laboratory Last Values Urine pH (Auto) 6.0 09/23/24 16:12 Specific [place] (Auto) 1.025 09/23/24 16:12 Urine Protein (Auto) 30 mg/dL 09/23/24 16:12 Glucose (UA)(Auto) 0 mg/dL 09/23/24 16:12 Urine Ketones (Auto) Negative 09/23/24 16:12 Urine Blood (Auto) 0 Bull/uL 09/23/24 16:12 Urine Nitrite (Auto) Negative 09/23/24 16:12 Urine Bilirubin (Auto) 0 mg/dL 09/23/24 16:12 Urine Urobilinogen (Auto) 0.2 mg/dL 09/23/24 16:12 Leukocyte Esterase (Auto) 0 Ira/uL 09/23/24 16:12 Assessment & Plan Assessment & Plan (1) Frequent UTI: Code(s): N39.0 - Urinary tract infection, site not specified Category: Medical Plan In office urinalysis results reviewed the patient today; as noted above. PVR 0 mL Patient currently denies any bothersome urinary issues or concerns. She reports be happy with current voiding parameters. She denies any UTI like symptoms. We discussed calling office with any bothersome urinary issues or concerns. Discussed UTI prevention with D mannose supplement, vitamin-C, increasing fluid intake, behavioral therapy with timed voiding, perineal hygiene and postcoital voiding, and management of constipation with stool softeners and increased fiber intake. Follow-up in 6 months with PVR; or sooner with any issues, concerns, and or questions. Orders: Orders AMB Urinalysis Automated Today Z13.9 - Encounter for screening, unspecified Patient Instructions: The patient had an opportunity to ask questions regarding the treatment plan. All questions were answered. Physical exam, labs, and imaging were discussed and reviewed in detail. As well as risks, benefits, and discussion of treatment choices. No major barriers to understanding were identified. The patient expressed understanding and agreement with the above treatment plan. The patient was made aware they should contact our office by phone for worsening of their current condition, the appearance of new symptoms, or with any questions or concerns. Compliance is encouraged with any medications and follow up testing that is ordered. It is a privilege to be allowed the opportunity to participate in? your urological care.? Again, if you have any questions or concerns If you have any questions or concerns please do not hesitate to contact me. The office is [phone]. This note is constructed using voice recognition software. While every effort has been made to ensure accuracy airport operations crew member errors may have been included. Yours sincerely, OCTAVIO Joyce Coding Level of Care Code Est Pt Level 3 (75469) Diagnoses Frequent UTI N39.0 CPT Codes Post Residual Void - PVR CPT Code: 13115-[place] Void Residual by ultrasound ([id number])
--- OUTSIDE RECORDS SUMMARY | 2024-09-23 16:02 | XMS_ITS ---
Author Name [facility] Organization Unknown History of Medication Use Medication Directions Dispensed Refills Start Date End Date Stat us ondansetron (ZOFRAN) 4 MG tablet TAKE 1 TABLET BY MOUTH EVERY 8 HOURS NEEDED FOR NAUSEA/VOMITING 02/13/2022 active Amada TAVAREZ, 0.3-30 mg-mcg per tablet 02/13/2022 active cyproheptadine (PERIACTIN) 4 mg tablet Take 1 tablet daily at bedtime for a week, then, increase the dose to 2 tablet daily at bedtime 02/13/2022 active clindamycin (CLEOCIN T) 1 % lotion Apply topically 02/13/2022 active Problems Problem Status Onset Date Problem Type Date of Resoluti on Source Intractable vomiting with nausea, unspecified vomiting type active 2020-07-23 ProblemAct [facility]
== END 2024-09-23 16:20 | disposition home or self-care (01) ==
PROVIDERS: PCP Physician Assistant; Visit Provider Nurse Practitioner Family
DX: N39.0 Urinary tract infection, site not specified (principal); Z13.9 Encounter for screening, unspecified
CPT/HCPCS: 99213

== ENCOUNTER → 2024-09-23 16:00 | Outpatient (BNVA) | payer BC, SELFPAY | PROVIDERS: PCP Physician Assistant; Visit Provider Nurse Practitioner Family | DX: N39.0 Urinary tract infection, site not specified (principal) | CPT/HCPCS: 51798; 81003 ==